=== PATIENT | female | born 1965 | race Caucasian/White ===

== ENCOUNTER 2018-04-19 11:58 | Observation (INO) ==
[2018-04-19] MEDS ORDERED: Sod Chloride 0.9% Inj 1,000 ML IV.CONT SCH (12:15)
--- NOTE | 2018-04-19 12:19 | ED ---
HPI General Chief Complaint: Seizure Stated Complaint: medical Time Seen by Provider: 04/19/18 12:03 Source: patient, EMS and RN notes reviewed Mode of arrival: EMS Limitations: other (Does not recall episode) History of Present Illness HPI Narrative: 53 y/o female presents by EMS after having a witnessed tonic- clonic seizure that lasted about a minute. When ems on scene she was postictal. Patient does not recall event. She denies any complaints other than feeling a little off. No one else is present on initial examination so history is limited. She denies prior history of seizure Related Data Home Medications Medication Instructions Recorded Confirmed conj estrog-medroxyprogest stefanie 1 tab PO DAILY 04/19/18 04/19/18 [Prempro] Allergies Allergy/AdvReac Type Severity Reaction Status Date / Time No Known Allergies Allergy Verified 04/19/18 12:23 Review of Systems ROS: all other systems reviewed are negative PMFSH History History Provided By: Patient (Denies significant medical history) Medical History Medical History Atrial septal defect (Acute) Social History Social History Substance History: No History of Abuse Smoking Status: Never smoker How Often Do You Have a Drink Containing Alcohol: Monthly or less Recent Travel in [facility] within the Last 8 Weeks: No Recent Out of Country Travel within the Last 8 Weeks: Yes Exam Narrative Exam Narrative: GENERAL: 53-year-old female in no apparent distress SKIN: Focused skin assessment warm/dry. HEAD: Atraumatic. Normocephalic. EYES: Pupils equal and round. No scleral icterus. No injection or drainage. ENT: No nasal bleeding or discharge. Mucous membranes pink and moist. NECK: Trachea midline. No JVD. CARDIOVASCULAR: Regular rate and rhythm. No murmur appreciated. RESPIRATORY: No accessory muscle use. Clear to auscultation. Breath sounds equal bilaterally. GASTROINTESTINAL: Abdomen soft, nondistended. Hepatic and splenic margins not palpable. MUSCULOSKELETAL: No obvious deformities. No clubbing. No cyanosis. No edema. NEUROLOGICAL: Awake and alert. No obvious cranial nerve deficits. Motor grossly within normal limits. Normal speech. PSYCHIATRIC: Appropriate mood and affect; insight and judgment normal. Course Reevaluation(s) Reevaluation #1: patient updated and agrees to admit, states forgot to mention on welbutrin for weight loss for past 6 weeks in case that is related Consultations Consultation #1: dr mineoui agrees to admit Initial Documented Vital Signs Temperature 98.1 F 04/19/18 12:05 Pulse Rate 77 04/19/18 12:05 Respiratory Rate 13 04/19/18 12:05 Blood Pressure 161/93 H 04/19/18 12:05 Pulse Oximetry 99 04/19/18 12:05 Last Documented Vital Signs Temperature 98.1 F 04/19/18 12:05 Pulse Rate 77 04/19/18 12:05 Respiratory Rate 13 04/19/18 12:05 Blood Pressure 161/93 H 04/19/18 12:05 Pulse Oximetry 99 04/19/18 12:05 Medical Decision Making MDM Narrative Medical decision making narrative: Patient presents after a witnessed tonic- clonic seizure. Will check workup with blood work and CT and reevaluate Medical Screen Exam Complete: Yes Emergency Medical Condition: Yes Differential Diagnosis Differential Diagnosis: Bleed, mass, seizure disorder, electrolyte Lab Data Result diagrams: 04/19/18 12:25 04/19/18 12:25 Lab Results 04/19/18 04/19/18 04/19/18 Range/Units 12:20 12:20 12:25 WBC 5.2 (4.0-11.0) th/mm3 RBC 4.34 (4.00-5.30) mil/mm3 Hgb 14.0 (11.6-15.3) gm/dL Hct 40.2 (35.0-46.0) % MCV 92.7 (80.0-100.0) fL MCH 32.3 (27.0-34.0) pg MCHC 34.8 (32.0-36.0) % RDW 13.6 (11.6-17.2) % Plt Count 192 (150-450) th/mm3 MPV 8.1 (7.0-11.0) fL Neut % (Auto) 69.0 (16.0-70.0) % Lymph % (Auto) 22.2 (9.0-44.0) % King % (Auto) 6.7 (0.0-8.0) % Eos % (Auto) 1.2 (0.0-4.0) % Baso % (Auto) 0.9 (0.0-2.0) % Neut # (Auto) 3.6 (1.8-7.7) th/mm3 Lymph # (Auto) 1.2 (1.0-4.8) th/mm3 King # (Auto) 0.4 (0.0-0.9) th/mm3 Eos # (Auto) 0.1 (0.0-0.4) th/mm3 Baso # (Auto) 0.0 (0.0-0.2) th/mm3 WBC Differential . Differential Comment Auto diff final Sodium (136-145) meq/L Potassium (3.5-5.1) meq/L Chloride (98-107) meq/L Carbon Dioxide (21.0-32.0) meq/L Anion Gap (5-15) meq/L BUN (7-18) mg/dL Creatinine (0.50-1.00) mg/dL Estimated GFR (>89) mL/min Random Glucose (74-106) mg/dL Calcium (8.5-10.1) mg/dL Magnesium (1.5-2.5) mg/dL Total Bilirubin (0.2-1.0) mg/dL AST (15-37) U/L ALT (10-53) U/L Alkaline Phosphatase (45-117) U/L Total Protein (6.4-8.2) g/dL Albumin (3.4-5.0) g/dL Urine Color Yellow (Yellw/Straw) Urine Clarity Clear (Clear) Urine pH 5.0 (5.0-8.5) Ur Specific [place] 1.011 (1.002-1.035) Urine Protein Negative (Neg-Trace) mg/dL Urine Glucose (UA) Negative (Negative) mg/dL Urine Ketones Negative (Negative) mg/dL Urine Occult Blood Negative (Negative) Urine Nitrate Negative (Negative) Urine Bilirubin Negative (Negative) Urine Urobilinogen Less than 2 (Less than 2) mg/dL Ur Leukocyte Esterase Negative (Negative) Urine RBC Less than 1 (0-3) /hpf Urine WBC 1 (0-5) /hpf Urine Bacteria Occasional H (None) /hpf Hyaline Casts 21 (0-3) /lpf Urine Mucus Few H (Occasional) /lpf Ur Microscopic Review Not Reportable Urine Opiates Screen Neg (Neg) Ur Barbiturates Screen Neg (Neg) Ur Amphetamines Screen Neg (Neg) U Benzodiazepines Scrn Neg (Neg) Urine Cocaine Screen Neg (Neg) U Cannabinoids Screen Neg (Neg) Serum Alcohol (0-5) mg/dL 04/19/18 Range/Units 12:25 WBC (4.0-11.0) th/mm3 RBC (4.00-5.30) mil/mm3 Hgb (11.6-15.3) gm/dL Hct (35.0-46.0) % MCV (80.0-100.0) fL MCH (27.0-34.0) pg MCHC (32.0-36.0) % RDW (11.6-17.2) % Plt Count (150-450) th/mm3 MPV (7.0-11.0) fL Neut % (Auto) (16.0-70.0) % Lymph % (Auto) (9.0-44.0) % King % (Auto) (0.0-8.0) % Eos % (Auto) (0.0-4.0) % Baso % (Auto) (0.0-2.0) % Neut # (Auto) (1.8-7.7) th/mm3 Lymph # (Auto) (1.0-4.8) th/mm3 King # (Auto) (0.0-0.9) th/mm3 Eos # (Auto) (0.0-0.4) th/mm3 Baso # (Auto) (0.0-0.2) th/mm3 WBC Differential Differential Comment Sodium 140 (136-145) meq/L Potassium 3.5 (3.5-5.1) meq/L Chloride 107 (98-107) meq/L Carbon Dioxide 26.6 (21.0-32.0) meq/L Anion Gap 6 (5-15) meq/L BUN 13 (7-18) mg/dL Creatinine 1.14 H (0.50-1.00) mg/dL Estimated GFR 50 L (>89) mL/min Random Glucose 120 H (74-106) mg/dL Calcium 8.2 L (8.5-10.1) mg/dL Magnesium 1.9 (1.5-2.5) mg/dL Total Bilirubin 0.4 (0.2-1.0) mg/dL AST 20 (15-37) U/L ALT 29 (10-53) U/L Alkaline Phosphatase 64 (45-117) U/L Total Protein 7.1 (6.4-8.2) g/dL Albumin 3.7 (3.4-5.0) g/dL Urine Color (Yellw/Straw) Urine Clarity (Clear) Urine pH (5.0-8.5) Ur Specific [place] (1.002-1.035) Urine Protein (Neg-Trace) mg/dL Urine Glucose (UA) (Negative) mg/dL Urine Ketones (Negative) mg/dL Urine Occult Blood (Negative) Urine Nitrate (Negative) Urine Bilirubin (Negative) Urine Urobilinogen (Less than 2) mg/dL Ur Leukocyte Esterase (Negative) Urine RBC (0-3) /hpf Urine WBC (0-5) /hpf Urine Bacteria (None) /hpf Hyaline Casts (0-3) /lpf Urine Mucus (Occasional) /lpf Ur Microscopic Review Urine Opiates Screen (Neg) Ur Barbiturates Screen (Neg) Ur Amphetamines Screen (Neg) U Benzodiazepines Scrn (Neg) Urine Cocaine Screen (Neg) U Cannabinoids Screen (Neg) Serum Alcohol Less than 3 (0-5) mg/dL Imaging Data Radiologist's impression: Head CT 04/19/18 12:07 CONCLUSION: Negative noncontrast CT of the head. . Discharge Plan Discharge Disposition Patient Disposition: ED Admit(ED Internal Use Only) Discharge Order Discharge Orders: ED Use Only Admit Order (Routine); Ordered 04/19/18 Ordered By: Celia Hargrove Discharge Details Diagnosis: Seizure Physicians Team ED Provider: Celia Hargrove Primary Care Provider: Daphne Pearce Attending Provider: Tai Palacios Status ED Status: Admitted Observation Patient
--- NOTE | 2018-04-19 13:00 | CT ---
EXAM DATE: 04/19/2018 12:57 PM EST AGE/SEX: 53 years / Female INDICATIONS: Seizure, Altered Mental Status CLINICAL DATA: This is the patient's initial encounter. Patient reports that signs and symptoms have been present for 1 day and indicates a pain score of 0/10. MEDICAL/SURGICAL HISTORY: None. None. RADIATION DOSE: 56.35 CTDI (mGy) COMPARISON: No prior exams available for comparison. TECHNIQUE: CT of the head without contrast. Using automated exposure control and adjustment of the mA and/or kV according to patient size, radiation dose was kept as low as reasonably achievable to ob tain optimal diagnostic quality images. DICOM format image data is available electronically for revi ew and comparison. FINDINGS: Cerebrum: The ventricles are normal for age. No evidence of midline shift, mass lesion, hemorrhage or acute infarction. No extraaxial fluid collections are seen. Posterior Fossa: The cerebellum and brainstem are intact. The 4th ventricle is midline. The cerebe llopontine angle is unremarkable. Extracranial: The visualized portion of the orbits is intact. Skull: The calvaria is intact. No evidence of skull fracture. CONCLUSION: Negative noncontrast CT of the head. . Electronically signed by: Jd Begum MD Board Certified Radiologist 04/19/2018 12:59 PM EST
[2018-04-19 13:04] LABS: Baso % (Auto) 0.9 % (0.0-2.0); Eos # (Auto) 0.1 th/mm3 (0.0-0.4); Eos % (Auto) 1.2 % (0.0-4.0); Hematocrit 40.2 % (35.0-46.0); Lymph # (Auto) 1.2 th/mm3 (1.0-4.8); Lymph % (Auto) 22.2 % (9.0-44.0); Mean Corpuscular HGB Conc 34.8 % (32.0-36.0); Mean Corpuscular Hemoglobin 32.3 pg (27.0-34.0); Mean Corpuscular Volume 92.7 fL (80.0-100.0); Mean Platelet Volume 8.1 fL (7.0-11.0); Mono # (Auto) 0.4 th/mm3 (0.0-0.9); Mono % (Auto) 6.7 % (0.0-8.0); Neut # (Auto) 3.6 th/mm3 (1.8-7.7); Platelet Count 192 th/mm3 (150-450); Red Blood Count 4.34 mil/mm3 (4.00-5.30); Red Cell Distribution Width 13.6 % (11.6-17.2); White Blood Count 5.2 th/mm3 (4.0-11.0)
[2018-04-19 13:13] LABS: Amphetamine Screen,Urine Neg (Neg); Barbiturate Screen,Urine Neg (Neg); Cannabinoid Screen,Urine Neg (Neg); Cocaine Screen,Urine Neg (Neg)
[2018-04-19 13:15] LABS: Bacteria,Urine Occasional /hpf; Bilirubin,Urine Negative (Negative); Clarity,Urine Clear (Clear); Color,Urine Yellow (Yellw/Straw); Glucose,Urine (UA) Negative (Negative); Hyaline Casts,Urine 21 /lpf (0-3); Leukocyte Esterase,Urine Negative (Negative); Mucus,Urine Few /lpf (Occasional); Nitrite,Urine Negative (Negative); Specific Gravity,Urine 1.011 (1.002-1.035)
[2018-04-19 13:29] LABS: Opiate Screen,Urine Neg (Neg)
[2018-04-19 13:36] LABS: Alanine Aminotransferase 29 U/L (10-53); Albumin 3.7 g/dL (3.4-5.0); Anion Gap 6 meq/L (5-15); Aspartate Aminotransferase 20 U/L (15-37); Blood Urea Nitrogen 13 mg/dL (7-18); Calcium 8.2 mg/dL (8.5-10.1); Carbon Dioxide 26.6 meq/L (21.0-32.0); Chloride 107 meq/L (98-107); Glomerular Filtration Rate 50 mL/min (>89); Glucose,Random 120 mg/dL (74-106); Magnesium 1.9 mg/dL (1.5-2.5); Potassium 3.5 meq/L (3.5-5.1); Sodium 140 meq/L (136-145)
[2018-04-19 13:38] LABS: Alkaline Phosphatase 64 U/L (45-117); Total Protein 7.1 g/dL (6.4-8.2)
--- NOTE | 2018-04-19 14:46 | P.HPIM ---
History of Present Illness Primary Care Physician: Daphne Pearce MD Chief Complaint: seizure History of Present Illness: patient is a 53 y/o female with history of ASD- s/p surgical repair- otherwise no other significant past medical history was brought to ER after she had a seizure earlier today. she says that she was [place] [employer] [place] today when she says that ' her eyes started rolling out' and then per the family member ' her whole body got stiff' . this lasted for a couple of minutes and she gradually got back to normal. she denies any tongue bitig or urinary incontinence. she doesn't recall any similar events in the past. she says that she was stared on Wellbutrin -for the weight loss- about a month and half ago.at the time of my evaluation she was awake, alert and fully oriented with no specific complaints. Review of Systems Review of Systems: all other systems reviewed are negative [facility] Medical History Medical History Atrial septal defect (Acute) Surgical History Surgical History History of repair of congenital atrial septal defect (ASD) (Acute) Family History Family History Father Lung cancer Social History Social History Substance History: No History of Abuse Smoking Status: Never smoker How Often Do You Have a Drink Containing Alcohol: Monthly or less Recent Travel in [facility] within the Last 8 Weeks: No Recent Out of Country Travel within the Last 8 Weeks: Yes Immunization History Tetanus Immunization: Unsure Medications and Allergies Allergies Allergy/AdvReac Type Severity Reaction Status Date / Time No Known Allergies Allergy Verified 04/19/18 12:23 Home Medications Medication Instructions Recorded Confirmed Type conj estrog-medroxyprogest stefanie 1 tab PO DAILY 04/19/18 04/19/18 History [Prempro] Active Medications: Active Medications Sodium Chloride (Ns Inj) 1,000 mls @ 125 mls/hr IV.CONT .Q8H [facility] Last Admin: 04/19/18 12:34 Dose: 125 mls/hr Sodium Chloride (Ns Inj) 1,000 mls @ 100 mls/hr IV.CONT .Q10H [facility] Lorazepam (Ativan Inj) 1 mg IV.PUSH Q15M PRN PRN Reason: SEIZURES Sodium Chloride (Ns Flush) 2 ml IV.FLUSH PRN PRN PRN Reason: FLUSH AFTER USING IV ACCESS Physical Exam Vital signs: Last Vital Signs Temp 98.1 F 04/19/18 12:05 Pulse 77 04/19/18 12:05 Resp 13 04/19/18 12:05 BP 161/93 H 04/19/18 12:05 Pulse Ox 99 04/19/18 12:05 Intake & Output 04/17/18 04/18/18 04/19/18 04/20/18 06:59 06:59 06:59 06:59 Weight 62.596 kg Constitutional no acute distress Routine HEENT Exam Eye: Present PERRL Routine Neck Exam Present supple Routine Respiratory Exam Present CTA bilaterally Routine Cardiovascular Exam Present RRR Routine Abdominal Exam Present soft Routine Extremities Exam Comments: no pedal edema. Routine Neurological Exam Present alert and oriented X3 Results Labs CBC & Chem 7: 04/19/18 12:25 04/19/18 12:[address] 04/19/18 12:07 CONCLUSION: Negative noncontrast CT of the head. . Caprini VTE Risk Assessment Caprini VTE Risk Assessment: No/Low Risk (score <= 1) Caprini Risk Assessment Model: Point Value = 1 Point Value = 2 Point Value = 3 Point Value = 5 Age 41-60 Minor surgery BMI > 25 kg/m2 Swollen legs Varicose veins or History of unexplained or recurrent spontaneous Oral contraceptives or hormone replacement Sepsis (< 1 month) Serious lung disease, including pneumonia (< 1 month) Abnormal pulmonary function Acute myocardial infarction Congestive heart failure (< 1 month) History of inflammatory bowel disease Medical patient at bed rest Age 61-74 Arthroscopic surgery Major open surgery (> 45 min) Laparoscopic surgery (> 45 min) Malignancy Confined to bed (> 72 hours) Immobilizing plaster cast Central venous access Age >= 75 History of VTE Family history of VTE Factor V Leiden Prothrombin [id number] Lupus anticoagulant Anticardiolipin antibodies Elevated serum homocysteine Heparin-induced thrombocytopenia Other congenital or acquired thrombophilia Stroke (< 1 month) Elective arthroplasty Hip, pelvis, or leg fracture Acute spinal cord injury (< 1 month) Prophylaxis Regimen: Total Risk Factor Score Risk Level Prophylaxis Regimen 0-1 Low Early ambulation 2 Moderate Order ONE of the following: *Sequential Compression Device (SCD) *Heparin 5000 units SQ BID 3-4 Higher Order ONE of the following medications: *Heparin 5000 units SQ TID *Enoxaparin/Lovenox 40 mg SQ daily (WT < 150 kg, CrCl > 30 mL/min) *Enoxaparin/Lovenox 30 mg SQ daily (WT < 150 kg, CrCl > 10-29 mL/min) *Enoxaparin/Lovenox 30 mg SQ BID (WT < 150 kg, CrCl > 30 mL/min) AND/OR *Sequential Compression Device (SCD) 5 or more Highest Order ONE of the following medications: *Heparin 5000 units SQ TID (Preferred with Epidurals) *Enoxaparin/Lovenox 40 mg SQ daily (WT < 150 kg, CrCl > 30 mL/min) *Enoxaparin/Lovenox 30 mg SQ daily (WT < 150 kg, CrCl > 10-29 mL/min) *Enoxaparin/Lovenox 30 mg SQ BID (WT < 150 kg, CrCl > 30 mL/min) AND *Sequential Compression Device (SCD) Assessment and Plan Plan A/P - seizure- new onset continue with seizure precautions and neuro-checks- Ativan as needed- will check EEG and consult Neurology. -ASD- s/p surgical repair. Discussed Condition With: the ER physician, the patient and family. Discharge Planning: home- pending neurology evaluation.
[2018-04-19] MEDS: Sod Chloride 0.9% Inj 1,000 ML IV.CONT SCH (17:10)
[2018-04-20] MEDS: Sod Chloride 0.9% Inj 1,000 ML IV.CONT SCH ×2 (00:33→11:52)
[2018-04-20 06:30] LABS: Calcium 8.5 mg/dL (8.5-10.1); Carbon Dioxide 25.5 meq/L (21.0-32.0); Potassium 3.5 meq/L (3.5-5.1)
[2018-04-20 07:24] VITALS: RESP 16; TEMP 98.8
--- NOTE | 2018-04-20 09:19 | MG ---
cc: José Miguel Borja MD EEG NUMBER: [id number]. DESCRIPTION: Eight to nine Hertz posterior rhythm 10-40 microvolts. Low-amplitude beta in the frontal channels. Good anterior posterior gradient. Good EEG variability reactivity. Excellent driving to photic stimulation. Single EKG showing sinus rhythm. INTERPRETATION: Normal awake electroencephalogram. Clinical correlation. MD REINALDO Snyder/ian , 09:00 AM , 09:04 AM
--- NOTE | 2018-04-20 09:55 | P.CONNEU ---
History of Present Illness Service: Neurology Primary Care Provider: Daphne Pearce MD Chief Complaint: seizure History of Present Illness: 53-year-old female admitted for possible seizure activity. Patient was at a [employer] altered consciousness eye fluttering episode. Apparently had a GTC found to be in a postictal state. Resolved. Received Ativan in the ER. No further episodes. Has been having mild stress. Denies any sleep deprivation or binge drinking or illicit drug use. CT brain no acute lesion. Urine drug screen negative. Sodium calcium magnesium normal. Glucose greater than 100. She is placed on Wellbutrin several weeks ago to assist with weight control. No previous history of seizure or head trauma concussion or any family history of seizure or febrile seizures. She feels well otherwise. Review of Systems All other systems reviewed negative except as stated in HPI PMFSH - History History Provided By: Patient - Medical History Medical History: Medical History (Last Reviewed 04/19/18 @ 14:43 by Tai Palacios MD) Atrial septal defect - Surgical History Surgical History: Surgical History (Last Updated 04/19/18 @ 14:43 by Tai Palacios MD) History of repair of congenital atrial septal defect (ASD) - Family History Family History: Family History Father Lung cancer - Tobacco History Second Hand Smoke Exposure: No Smoking Status: Never smoker - Alcohol History How Often Do You Have a Drink Containing Alcohol: Monthly or less - Substance Use History Substance History: No History of Abuse - Travel History Recent Travel in the [place] Within the Last 8 Weeks: No Recent Travel Out of the Country Within the Last 8 Weeks: Yes - Immunization History Tetanus Immunization: Unsure Medications and Allergies Active Medications: Active Medications Sodium Chloride (Ns Inj) 1,000 mls @ 100 mls/hr IV.CONT .Q10H [facility] Last Admin: 04/20/18 00:33 Dose: Not Given Lorazepam (Ativan Inj) 1 mg IV.PUSH Q15M PRN PRN Reason: SEIZURES Sodium Chloride (Ns Flush) 2 ml IV.FLUSH PRN PRN PRN Reason: FLUSH AFTER USING IV ACCESS Allergies Allergy/AdvReac Type Severity Reaction Status Date / Time No Known Allergies Allergy Verified 04/19/18 12:23 Home Medications Medication Instructions Recorded Confirmed Type bupropion HCl [Wellbutrin XL] 150 mg PO QAM 04/19/18 04/19/18 History conj estrog-medroxyprogest stefanie 1 tab PO DAILY 04/19/18 04/19/18 History [Prempro] Exam Vital signs: Vital Signs 04/19/18 12:05 04/19/18 14:45 04/19/18 16:00 Temperature 98.1 F 99.2 F Pulse Rate 77 74 72 Respiratory Rate 13 21 16 Blood Pressure 161/93 H 161/68 H 160/96 H Pulse Oximetry 99 98 98 04/19/18 19:56 04/19/18 20:00 04/20/18 00:00 Temperature 99.0 F 98.8 F Pulse Rate 75 68 Respiratory Rate 18 18 Blood Pressure 131/88 121/75 Pulse Oximetry 96 96 97 04/20/18 04:00 04/20/18 07:20 Temperature 98.2 F 98.8 F Pulse Rate 84 72 Respiratory Rate 18 16 Blood Pressure 111/60 135/91 H Pulse Oximetry 96 98 Intake & Output 04/19/18 04/20/18 04/20/18 18:59 06:59 18:59 Intake Total 1480 / 1480 Balance 1480 / 1480 Weight 62.73 kg Intake: IV 1000 / 1000 NS Inj 1,000 ML @ 125 mls/hr IV 1000 / 1000 .CONT .Q8H [facility] Rx#:[id number] Oral 480 / 480 Other: Weight On Admission 62.73 kg Narrative: GENERAL: in NAD, SKIN: Warm and dry. HEAD: Atraumatic. Normocephalic. EYES: Pupils equal and round. No scleral icterus. ENT: No nasal bleeding or discharge. Mucous membranes pink and moist. NECK: Trachea midline. No JVD. RESPIRATORY: No accessory muscle use. MUSCULOSKELETAL: Extremities without clubbing, cyanosis, or edema. No obvious deformities. NEUROLOGICAL: Awake and alert. No aphasia, fluent articulate, No facial asymmetry, , eomi, VFF, No drift, no drift moving all 4 extremity PSYCHIATRIC: Appropriate mood and affect; insight and judgment normal. - Constitutional no acute distress - Routine HEENT Exam Head: Present: normocephalic Eye: Present: EOMI Results - Labs CBC & Chem 7: 04/19/18 12:25 04/20/18 05:18 Labs: Laboratory Results - last 24 hr 12/23/18 12/23/18 12/23/18 12:20 12:20 12:25 WBC 5.2 RBC 4.34 Hgb 14.0 Hct 40.2 MCV 92.7 MCH 32.3 MCHC 34.8 RDW 13.6 Plt Count 192 MPV 8.1 Neut % (Auto) 69.0 Lymph % (Auto) 22.2 [place] % (Auto) 6.7 Eos % (Auto) 1.2 Baso % (Auto) 0.9 Neut # (Auto) 3.6 Lymph # (Auto) 1.2 [place] # (Auto) 0.4 Eos # (Auto) 0.1 Baso # (Auto) 0.0 WBC Differential . Differential Comment Auto diff final Sodium Potassium Chloride Carbon Dioxide Anion Gap BUN Creatinine Estimated GFR Random Glucose Calcium Magnesium Total Bilirubin AST ALT Alkaline Phosphatase Total Protein Albumin Urine Color Yellow Urine Clarity Clear Urine pH 5.0 Ur Specific [place] 1.011 Urine Protein Negative Urine Glucose (UA) Negative Urine Ketones Negative Urine Occult Blood Negative Urine Nitrate Negative Urine Bilirubin Negative Urine Urobilinogen Less than 2 Ur Leukocyte Esterase Negative Urine RBC Less than 1 Urine WBC 1 Urine Bacteria Occasional H Hyaline Casts 21 Urine Mucus Few H Ur Microscopic Review Not Reportable Urine Opiates Screen Neg Ur Barbiturates Screen Neg Ur Amphetamines Screen Neg U Benzodiazepines Scrn Neg Urine Cocaine Screen Neg U Cannabinoids Screen Neg Serum Alcohol 04/19/18 04/20/18 12:25 05:18 WBC RBC Hgb Hct MCV MCH MCHC RDW Plt Count MPV Neut % (Auto) Lymph % (Auto) [place] % (Auto) Eos % (Auto) Baso % (Auto) Neut # (Auto) Lymph # (Auto) [place] # (Auto) Eos # (Auto) Baso # (Auto) WBC Differential Differential Comment Sodium 140 143 Potassium 3.5 3.5 Chloride 107 110 H Carbon Dioxide 26.6 25.5 Anion Gap 6 8 BUN 13 12 Creatinine 1.14 H 1.08 H Estimated GFR 50 L 53 L Random Glucose 120 H 85 Calcium 8.2 L 8.5 Magnesium 1.9 Total Bilirubin 0.4 AST 20 ALT 29 Alkaline Phosphatase 64 Total Protein 7.1 Albumin 3.7 Urine Color Urine Clarity Urine pH Ur Specific [place] Urine Protein Urine Glucose (UA) Urine Ketones Urine Occult Blood Urine Nitrate Urine Bilirubin Urine Urobilinogen Ur Leukocyte Esterase Urine RBC Urine WBC Urine Bacteria Hyaline Casts Urine Mucus Ur Microscopic Review Urine Opiates Screen Ur Barbiturates Screen Ur Amphetamines Screen U Benzodiazepines Scrn Urine Cocaine Screen U Cannabinoids Screen Serum Alcohol Less than 3 - Imaging Impressions Head CT 04/19/18 12:07 CONCLUSION: Negative noncontrast CT of the head. . Review/Management - Diagnosis (1) Seizure Code(s): R56.9 - Unspecified convulsions Status: Acute Current Visit: Yes - Review/Management Plan: New-onset seizure likely secondary to Wellbutrin use EEG negative Recommendation Can be discharged from neurologic standpoint DC Wellbutrin Follow with primary care physician If she were to have a recurrent episode despite being off Wellbutrin she may be developing an underlying epilepsy syndrome and would require seizure medications Proper sleep, stress reduction No driving, operating any heavy machinery or dangerous machinery, swimming alone for at least 6 months of being seizure, spell free.
[2018-04-20 11:33] VITALS: BP 131/84; PULSE 67; O2SAT 97
--- NOTE | 2018-04-20 11:58 | ECG ---
Date Performed: 04/19/2018 Time Performed: 13:03:09 PTAGE: 53 years EKG: Sinus rhythm POSSIBLE LEFT ATRIAL ENLARGEMENT MODERATE T-WAVE ABNORMALITY, CONSIDER ANTERIOR ISCHEMIA ABNORMAL EC G NO PREVIOUS TRACING DOCTOR: Fabio Alarcon Interpretating Date/Time 04/20/2018 11:55:58
--- NOTE | 2018-04-20 13:02 | P.PN ---
Subjective Interval history: awake and alert, no headaches no fever or history of trauma uses Welbutrin for weight reduction no history of depression Physical Exam Vital signs: Vital Signs 04/19/18 14:45 04/19/18 16:00 04/19/18 19:56 Temperature 99.2 F 99.0 F Pulse Rate 74 72 75 Respiratory Rate 21 16 18 Blood Pressure 161/68 H 160/96 H 131/88 Pulse Oximetry 98 98 96 04/19/18 20:00 04/20/18 00:00 04/20/18 04:00 Temperature 98.8 F 98.2 F Pulse Rate 68 84 Respiratory Rate 18 18 Blood Pressure 121/75 111/60 Pulse Oximetry 96 97 96 04/20/18 07:20 04/20/18 11:28 Temperature 98.8 F 98.8 F Pulse Rate 72 67 Respiratory Rate 16 16 Blood Pressure 135/91 H 131/84 Pulse Oximetry 98 97 Intake & Output 04/19/18 04/20/18 04/20/18 18:59 06:59 18:59 Intake Total 1480 / 1480 Balance 1480 / 1480 Weight 62.73 kg Intake: IV 1000 / 1000 NS Inj 1,000 ML @ 125 mls/hr IV 1000 / 1000 .CONT .Q8H [facility] Rx#:[id number] Oral 480 / 480 Other: Weight On Admission 62.73 kg Narrative: GENERAL: in NAD, SKIN: Warm and dry. HEAD: Atraumatic. Normocephalic. EYES: Pupils equal and round. No scleral icterus. ENT: No nasal bleeding or discharge. Mucous membranes pink and moist. NECK: Trachea midline. No JVD. RESPIRATORY: No accessory muscle use. MUSCULOSKELETAL: Extremities without clubbing, cyanosis, or edema. No obvious deformities. NEUROLOGICAL: Awake and alert. No aphasia, fluent articulate, No facial asymmetry, , eomi, VFF, No drift, no drift moving all 4 extremity PSYCHIATRIC: Appropriate mood and affect; insight and judgment normal. Results - Labs CBC & Chem 7: 04/19/18 12:25 04/20/18 05:18 Laboratory Results - last 24 hr 04/19/18 04/19/18 04/19/18 12:20 12:20 12:25 WBC 5.2 RBC 4.34 Hgb 14.0 Hct 40.2 MCV 92.7 MCH 32.3 MCHC 34.8 RDW 13.6 Plt Count 192 MPV 8.1 Neut % (Auto) 69.0 Lymph % (Auto) 22.2 [place] % (Auto) 6.7 Eos % (Auto) 1.2 Baso % (Auto) 0.9 Neut # (Auto) 3.6 Lymph # (Auto) 1.2 [place] # (Auto) 0.4 Eos # (Auto) 0.1 Baso # (Auto) 0.0 WBC Differential . Differential Comment Auto diff final Sodium Potassium Chloride Carbon Dioxide Anion Gap BUN Creatinine Estimated GFR Random Glucose Calcium Magnesium Total Bilirubin AST ALT Alkaline Phosphatase Total Protein Albumin Urine Color Yellow Urine Clarity Clear Urine pH 5.0 Ur Specific [place] 1.011 Urine Protein Negative Urine Glucose (UA) Negative Urine Ketones Negative Urine Occult Blood Negative Urine Nitrate Negative Urine Bilirubin Negative Urine Urobilinogen Less than 2 Ur Leukocyte Esterase Negative Urine RBC Less than 1 Urine WBC 1 Urine Bacteria Occasional H Hyaline Casts 21 Urine Mucus Few H Ur Microscopic Review Not Reportable Urine Opiates Screen Neg Ur Barbiturates Screen Neg Ur Amphetamines Screen Neg U Benzodiazepines Scrn Neg Urine Cocaine Screen Neg U Cannabinoids Screen Neg Serum Alcohol 04/19/18 04/20/18 12:25 05:18 WBC RBC Hgb Hct MCV MCH MCHC RDW Plt Count MPV Neut % (Auto) Lymph % (Auto) [place] % (Auto) Eos % (Auto) Baso % (Auto) Neut # (Auto) Lymph # (Auto) [place] # (Auto) Eos # (Auto) Baso # (Auto) WBC Differential Differential Comment Sodium 140 143 Potassium 3.5 3.5 Chloride 107 110 H Carbon Dioxide 26.6 25.5 Anion Gap 6 8 BUN 13 12 Creatinine 1.14 H 1.08 H Estimated GFR 50 L 53 L Random Glucose 120 H 85 Calcium 8.2 L 8.5 Magnesium 1.9 Total Bilirubin 0.4 AST 20 ALT 29 Alkaline Phosphatase 64 Total Protein 7.1 Albumin 3.7 Urine Color Urine Clarity Urine pH Ur Specific [place] Urine Protein Urine Glucose (UA) Urine Ketones Urine Occult Blood Urine Nitrate Urine Bilirubin Urine Urobilinogen Ur Leukocyte Esterase Urine RBC Urine WBC Urine Bacteria Hyaline Casts Urine Mucus Ur Microscopic Review Urine Opiates Screen Ur Barbiturates Screen Ur Amphetamines Screen U Benzodiazepines Scrn Urine Cocaine Screen U Cannabinoids Screen Serum Alcohol Less than 3 - Imaging Impressions Head CT 04/19/18 12:07 CONCLUSION: Negative noncontrast CT of the head. . Assessment and Plan - Plan 63 years old - seizure- new onset continue with seizure precautions and neuro-checks- Ativan as needed- - Advise to discontinue Welbutrin -ASD- s/p surgical repair. Discussed Condition With:patient and DC home toay- OP ff up with PCP- Dr. Pearce Activity as tolerated. Avoid heights, no driving for 6 months, advised adequate sleep Diet regular
== END 2018-04-20 14:26 | disposition home or self-care (01) ==
LOC: NEPC 11:58 → NEDA 11:58 → NEPGCP 15:31
PROVIDERS: ADMIT Internal Medicine; ATTEND Internal Medicine
DX: R94.31 Abnormal electrocardiogram [ECG] [EKG]; Z80.1 Family history of malignant neoplasm of trachea, bronchus and lung; R56.9 Unspecified convulsions; Q21.1 Atrial septal defect
CPT/HCPCS: 70450; 80048; 80053; 80307; 81001; 83735; 85025; 90761; 90774; 90784; 93005; 95819; 96361; 96374; 99285; C8952; G0378; J2060; J7030